=== PATIENT | female | born 1980 | race Hispanic/Latino ===

== ENCOUNTER 2016-06-17 15:56 | Emergency (ER) | payer SELFPAY ==
--- NOTE | 2016-06-17 16:24 | Emergency Department Report ---
Chief Complaint: Neck Pain/Injury Stated Complaint: NECK/CHEST/HIP PAIN Time Seen by Provider: 06/17/16 16:19 - HPI History of Present Illness: 35-year-old female comes in for complaint of neck pain that travels to her chest as well as left hip pain hip pain. Patient reports a past medical history of a goiter, thyroid disease. She is no longer on any thyroid medication. She reports the goiter making it difficult for her to swallow. She also complains of hip pain that she's had trouble for the last 11 years but now pain is getting worse. Denies any recent trauma to her left hip. Patient reports that she seems to be more depressed just wants to sleep all the time no energy. He is currently on no medication at this time. She is followed by [facility] but has not been able to get in as December. - Exam Vital Signs: Vital Signs 06/17/16 16:02 Temperature 98.3 F Pulse Rate 73 Respiratory 16 Rate Blood Pressure 132/87 O2 Sat by Pulse 99 Oximetry Physical Exam: She is alert and oriented 3 cardiovascular S1-S2 regular rate and rhythm respiratory clear dictation bilateral abdomen soft some mild tenderness in the left lower quadrant. There is noticeable goiter. MSE screening note: Focused history and physical exam performed. Due to findings the following was ordered: CBC BMP TSH free T4 UA serum test ordered patient be evaluated in main ER ED Disposition for MSE Condition: Stable
[2016-06-17 16:45] LABS: Hematocrit 39.3 % (30.3-42.9); Hemoglobin 13.4 gm/dl (10.1-14.3); Mean Corpuscular HGB Conc 34 % (30-34); Mean Corpuscular Hemoglobin 33 pg (28-32); Mean Corpuscular Volume 96 fl (79-97); Platelet Count 240 K/mm3 (140-440); Red Blood Count 4.11 M/mm3 (3.65-5.03); Red Cell Distribution Width 14.7 % (13.2-15.2); White Blood Count 9.3 K/mm3 (4.5-11.0)
[2016-06-17 17:04] LABS: Anion Gap 17 mmol/L; BUN/Creatinine Ratio 15.71; Blood Urea Nitrogen 11 mg/dL (7-17); Calcium 8.7 mg/dL (8.4-10.2); Carbon Dioxide 23 mmol/L (22-30); Chloride 102.1 mmol/L (98-107); Glucose 91 mg/dL (65-100); Potassium 3.6 mmol/L (3.6-5.0); Sodium 138 mmol/L (137-145)
[2016-06-17 17:17] LABS: Bilirubin,Urine NEG (Negative); Blood,Urine NEG (Negative); Ketones,Urine NEG (Negative); Leukocyte Esterase,Urine SM (Negative); Mucus,Urine FEW /HPF; Nitrite,Urine NEG (Negative); Protein,Urine <15 mg/dL mg/dL (Negative); Urobilinogen,Urine < 2.0 mg/dL (<2.0)
--- NOTE | 2016-06-17 20:02 | Cat Scan Report ---
FINAL REPORT EXAM: CT NECK WO CON HISTORY: goiter with sob TECHNIQUE: CT neck with IV contrast PRIORS: None. FINDINGS: No evidence for pharyngeal tonsillar enlargement no evidence of enlargement of the adenoids. No pathologically enlarged lymph nodes are identified in the neck The major salivary glands are within normal limits No abnormal mass or cyst is seen. The cervical spine is within normal limits. No evidence of significant anterior osteophyte. Proximal esophagus does not appear dilated. No focal inflammatory change seen. Major vascular structures are unremarkable. Thyroid gland is markedly enlarged right lobe measuring 7.5 centimeters in length and left lobe measuring 7 4 centimeters in length. At the level of the goiter there is minimal circumferential narrowing of the trachea measuring 1.18 x 1.43 centimeters (axial slice 70). At the level of the thoracic inlet it measures 1.39 x 1.52 centimeters IMPRESSION: Marked thyromegaly Minimal tracheal narrowing at the level of the mid thyroid
[2016-06-18 00:48] VITALS: BP 123/65
--- NOTE | 2016-06-18 01:03 | Emergency Department Report ---
ED Neck Pain/Injury HPI - General Chief Complaint: Neck Pain/Injury Stated Complaint: NECK/CHEST/HIP PAIN Time Seen by Provider: 06/17/16 16:19 Mode of arrival: Ambulatory Limitations: No Limitations - History of Present Illness Initial Comments: Patient is a 35-year-old female with history of goiter, hypothyroidism, anxiety presented today because of neck pain. Patient has been on levothyroxin long- term however states that she had stopped the medication back in February. She denies any other significant symptoms. States she occasionally has some shortness of breath however she is not short of breath here. No fevers, chills , nausea vomiting, changes in weight, diarrhea. Patient is also complaining about left hip pain that has been going on for the last 9 years that is intermittent and occasional, does not have any difficulty walking. She had also stopped her Zoloft and Klonopin in the last couple months. States that she missed an appointment to see her doctor recently. - Related Data Home Medications Medication Instructions Recorded Confirmed Last Taken RX: No Known Home Medications [No 06/18/16 06/18/16 Unknown Reported Home Medications] Allergies Allergy/AdvReac Type Severity Reaction Status Date / Time No Known Allergies Allergy Unverified 10/10/13 19:56 ED Review of Systems ROS: Stated complaint: NECK/CHEST/HIP PAIN Other details as noted in HPI Comment: All other systems reviewed and negative Constitutional: denies: chills, fever Respiratory: denies: cough, shortness of breath Cardiovascular: denies: chest pain Gastrointestinal: denies: abdominal pain, nausea, vomiting Skin: denies: rash Neurological: denies: headache, weakness, numbness Psychiatric: anxiety ED Past Medical Hx - Past Medical History Previous Medical History?: Yes Hx Diabetes: Yes (diet controlled) Additional medical history: Thyroid problems - Surgical History Hx Cholecystectomy: Yes Hx Appendectomy: Yes Additional Surgical History: Right foot bunionectomy - Social History Smoking Status: Current Every Day Smoker Substance Use Type: Alcohol - Medications Home Medications: Home Medications Medication Instructions Recorded Confirmed Last Taken Type RX: No Known Home Medications [No 06/18/16 06/18/16 Unknown History Reported Home Medications] ED Physical Exam - General Limitations: No Limitations General appearance: alert - Eye Eye exam: Present: normal appearance - ENT ENT exam: Present: normal exam, normal orophraynx, normal external ear exam - Neck Neck exam: Present: other (large goiter, nontender, no erythema, no fluctuance) - Respiratory Respiratory exam: Present: normal lung sounds bilaterally. Absent: respiratory distress - Cardiovascular Cardiovascular Exam: Present: regular rate, normal rhythm - GI/Abdominal GI/Abdominal exam: Present: soft. Absent: distended, tenderness - Extremities Exam Extremities exam: Present: normal inspection, other (no tenderness to the left hip, no edema to upper or lower extremities) - Neurological Exam Neurological exam: Present: alert, oriented X3 - Psychiatric Psychiatric exam: Present: anxious ED Course Vital Signs 06/17/16 06/17/16 06/18/16 16:02 23:49 00:47 Temperature 98.3 F 98.0 F 98.3 F Pulse Rate 73 60 64 Respiratory 16 18 18 Rate Blood Pressure 132/87 130/82 Blood Pressure 123/65 [Left] O2 Sat by Pulse 99 100 98 Oximetry ED Medical Decision Making - Lab Data Result diagrams: 06/17/16 16:32 06/17/16 16:32 - Medical Decision Making Labs and neck CT had been preordered. CT neck shows no airway compromise. Labs show hypothyroidism. Patient has normal vital signs and no clinical signs of myxedema. Sling to the patient the importance of following up with her primary care doctor. She has her thyroid medication at home. I recommended that she restart her medication and follow-up in the next few days with a primary care doctor. I gave her her lab results and CT results to discuss with her primary doctor. Patient understands and will follow-up. Critical care attestation.: If time is entered above; I have spent that time in minutes in the direct care of this critically ill patient, excluding procedure time. ED Disposition Clinical Impression: Goiter Hypothyroidism Qualifiers: Hypothyroidism type: unspecified Qualified Code(s): E03.9 - Hypothyroidism, unspecified Disposition: DISCHARGED TO HOME OR SELFCARE Is pt being admited?: No Does the pt Need Aspirin: No Condition: Stable Instructions: Hypothyroidism (ED), Thyroid Goiter (ED) Additional Instructions: Follow-up with your primary care doctor in the next 3-5 days. Bring your lab results and CT results to discuss with your doctor. Your lab results did show hypothyroidism. Return to the emergency room if you have any new symptoms especially shortness of breath, lightheadedness or swelling to the lower legs Referrals: PRIMARY CARE, [Primary Care Provider] - 3-5 Days Time of Disposition: 01:10
[2016-06-18] MEDS ORDERED: MOTRIN PO ONE (01:05)
== END 2016-06-18 01:32 | disposition home or self-care (01) ==
LOC: ED 15:56
DX: E03.9 Hypothyroidism, unspecified (principal); E04.9 Nontoxic goiter, unspecified; E11.9 Type 2 diabetes mellitus without complications; F17.200 Nicotine dependence, unspecified, uncomplicated; Z90.49 Acquired absence of other specified parts of digestive tract
CPT/HCPCS: 36415; 70490; 80048; 81001; 84439; 84443; 84702; 85027; 93005; 93010; 99284

== ENCOUNTER 2016-12-30 21:43 | Emergency (ER) | payer MEDICAID ==
--- NOTE | 2016-12-30 22:42 | Emergency Department Report ---
ED Extremity Problem HPI - General Chief complaint: Extremity Injury, Lower Stated complaint: FOOT PAIN Source: patient Mode of arrival: Ambulatory Limitations: No Limitations - History of Present Illness MD Complaint: extremity pain -: Gradual, days(s) Location: right, other (foot ) History of Same: No -: Yes arthralgia, No fever, No associated dyspnea, No associated chest pain Severity scale (0 -10): 4 Quality: aching Worsens with: weight bearing, walking, palpation Associated Symptoms: denies other symptoms. denies: chest pain, shortness of breath, fever, myalgias, rash - Related Data Previous Rx's Medication Instructions Recorded Last Taken Type Etodolac 200 mg PO Q8H PRN #20 capsule 12/30/16 Unknown Rx traMADol [Ultram 50 MG tab] 50 mg PO Q4HR PRN #20 tablet 12/30/16 Unknown Rx Allergies Allergy/AdvReac Type Severity Reaction Status Date / Time No Known Allergies Allergy Verified 12/30/16 21:48 ED Review of Systems ROS: Stated complaint: FOOT PAIN Other details as noted in HPI Constitutional: denies: chills, fever Eyes: denies: eye pain, eye discharge, vision change ENT: denies: ear pain, throat pain Respiratory: denies: see HPI, cough, orthopnea, shortness of breath, SOB with exertion, SOB at rest, stridor, wheezing Cardiovascular: denies: chest pain, palpitations, dyspnea on exertion, orthopnea , edema, syncope, paroxysmal nocturnal dyspnea Gastrointestinal: denies: nausea, vomiting Musculoskeletal: arthralgia. denies: joint swelling Skin: denies: rash, lesions ED Past Medical Hx - Past Medical History Previous Medical History?: No Hx Diabetes: (diet controlled) Additional medical history: Thyroid problems - Surgical History Past Surgical History?: Yes Hx Cholecystectomy: Yes Hx Appendectomy: Yes Additional Surgical History: Right foot bunionectomy - Social History Smoking Status: Current Every Day Smoker Substance Use Type: Alcohol - Medications Home Medications: Home Medications Medication Instructions Recorded Confirmed Last Taken Type Etodolac 200 mg PO Q8H PRN #20 capsule 12/30/16 Unknown Rx traMADol [Ultram 50 MG tab] 50 mg PO Q4HR PRN #20 tablet 12/30/16 Unknown Rx ED Physical Exam - General Limitations: No Limitations General appearance: alert, in no apparent distress - Head Head exam: Present: atraumatic, normocephalic - Eye Eye exam: Present: normal appearance - ENT ENT exam: Present: mucous membranes moist - Neck Neck exam: Present: normal inspection - Respiratory Respiratory exam: Present: normal lung sounds bilaterally. Absent: respiratory distress - Cardiovascular Cardiovascular Exam: Present: regular rate - Extremities Exam Extremities exam: Present: full ROM, tenderness (right plantar fascial pain on palpation), normal capillary refill. Absent: pedal edema, joint swelling, calf tenderness - Back Exam Back exam: Present: normal inspection, full ROM - Neurological Exam Neurological exam: Present: alert, oriented X3 - Psychiatric Psychiatric exam: Present: normal affect - Skin Skin exam: Present: warm, dry, intact, normal color. Absent: rash ED Course Vital Signs 12/30/16 21:49 Temperature 98.6 F Pulse Rate 79 Respiratory 16 Rate Blood Pressure 119/77 O2 Sat by Pulse 98 Oximetry - Reevaluation(s) Reevaluation #1: 12/31/16 00:09 Stress to x-ray findings, and discharge instructions with patient patient verbalized understanding of these. Critical care attestation.: If time is entered above; I have spent that time in minutes in the direct care of this critically ill patient, excluding procedure time. ED Disposition Clinical Impression: Plantar fasciitis of right foot Disposition: DC-01 TO HOME OR SELFCARE Is pt being admited?: No Condition: Stable Instructions: Plantar Fasciitis (ED) Prescriptions: Etodolac 200 mg PO Q8H PRN #20 capsule PRN Reason: Pain traMADol [Ultram 50 MG tab] 50 mg PO Q4HR PRN #20 tablet PRN Reason: Pain Referrals: PRIMARY CARE, [Primary Care Provider] - 3-5 Days MELECIO BEASLEY MD [Staff Physician] - 3-5 Days
--- NOTE | 2016-12-30 23:57 | XRay Report ---
FINAL REPORT EXAM: XR ANKLE 3+V RT HISTORY: INJURY TECHNIQUE: Right ankle three views 3 images PRIORS: None. FINDINGS: There are screws noted in the 1st metatarsal. Bone mineralization appears within normal limits. No acute fracture or subluxation is identified. No gross abnormality is seen in the soft tissues. IMPRESSION: 1. No acute osseous abnormality is identified. 2. Surgical sequelae are noted.
--- NOTE | 2016-12-30 23:57 | XRay Report ---
FINAL REPORT EXAM: XR FOOT 3+V RT HISTORY: INJURY TECHNIQUE: Right foot three views 3 images PRIORS: None. FINDINGS: Screws are noted in the 1st metatarsal. Bone mineralization appears within normal limits. No acute fracture or subluxation is identified. No gross abnormality is seen in the soft tissues. IMPRESSION: 1. No acute fracture is identified.If symptoms persist, consider repeat study in 10-14 days to assess for a currently radiographically occult fracture.
[2016-12-31 00:15] VITALS: BP 125/85
== END 2016-12-31 00:15 | disposition home or self-care (01) ==
LOC: ED 21:43
DX: M72.2 Plantar fascial fibromatosis (principal); F17.210 Nicotine dependence, cigarettes, uncomplicated
CPT/HCPCS: 99283

== ENCOUNTER 2017-01-19 11:18 | Outpatient (CLI) | payer MEDICAID ==
--- NOTE | 2017-01-19 12:15 | XRay Report ---
LEFT HIP RADIOGRAPHS INDICATION: Left hip pain. COMPARISON: None similar. FINDINGS: An AP pelvic radiograph with frog-leg projection of the left hip demonstrate intact articulation. Imaged bilateral SI and hip joints appear intact. Nonobstructive bowel gas pattern. Few small pelvic phleboliths. CONCLUSION: No acute radiographic abnormality. Thank you for the opportunity to participate in this patient's care.
== END 2017-01-19 11:19 | disposition home or self-care (01) ==
LOC: XRAY 11:18
PROVIDERS: ATTEND Orthopaedic Surgery
DX: M25.552 Pain in left hip (principal); I87.8 Other specified disorders of veins; F17.200 Nicotine dependence, unspecified, uncomplicated

== ENCOUNTER 2018-07-13 01:24 | Emergency (ER) | payer MEDICAID ==
[2018-07-13 01:56] LABS: Basophils % (Auto) 0.4 % (0.0-1.8); Eosinophils # (Auto) 0.2 K/mm3 (0.0-0.4); Eosinophils % (Auto) 2.1 % (0.0-4.3); Hematocrit 38.3 % (30.3-42.9); Hemoglobin 13.1 gm/dl (10.1-14.3); Lymphocytes # (Auto) 2.8 K/mm3 (1.2-5.4); Lymphocytes % (Auto) 35.3 % (13.4-35.0); Mean Corpuscular HGB Conc 34 % (30-34); Mean Corpuscular Volume 100 fl (79-97); Monocytes # (Auto) 0.5 K/mm3 (0.0-0.8); Platelet Count 181 K/mm3 (140-440); Red Blood Count 3.84 M/mm3 (3.65-5.03); Red Cell Distribution Width 13.9 % (13.2-15.2)
[2018-07-13 03:46] LABS: Bacteria,Urine 1+ /HPF (Negative); Bilirubin,Urine NEG (Negative); Blood,Urine LG (Negative); Color,Urine Yellow (Yellow); Protein,Urine <15 mg/dL mg/dL (Negative); Urobilinogen,Urine < 2.0 mg/dL (<2.0)
[2018-07-13 03:48] LABS: RBC,Urine > 182.0 /HPF (0.0-6.0)
--- NOTE | 2018-07-13 05:12 | Ultrasound Report ---
FINAL REPORT PROCEDURE: US OB < = 14 WEEKS FETUS TECHNIQUE: Real-time transabdominal sonography of the uterus, placenta, amniotic fluid, adnexa, and fetus was performed with image documentation. Measurements were obtained to determine age/size. M-mode Doppler was used to document heartbeat. CPT 21470 HISTORY: and bleeding COMPARISON: No prior studies are available for comparison. FINDINGS: No intrauterine gestational sac is identified. Uterus measures 9.6 x 4.6 x 5.6 centimeters. Endometrium is thickened at 11 millimeters. There is no endometrial fluid. Right ovary measures 2.4 x 2 x 2.2 centimeters. Left ovary measures 2.5 x 1.2 x 2.1 centimeters. There is no ovarian mass or cyst or pelvic fluid collection. IMPRESSION: There is no evidence of intrauterine or ectopic . Correlation with beta HCG measurements may be helpful.
--- NOTE | 2018-07-13 05:12 | Ultrasound Report ---
FINAL REPORT PROCEDURE: US OB transvaginal TECHNIQUE: Real-time t transvaginal sonography of the uterus, placenta, amniotic fluid, adnexa, and fetus was performed with image documentation. Measurements were obtained to determine age/size. M-mode Doppler was used to document heartbeat. HISTORY: and bleeding COMPARISON: No prior studies are available for comparison. FINDINGS: No intrauterine gestational sac is identified. Uterus measures 9.6 x 4.6 x 5.6 centimeters. Endometrium is thickened at 11 millimeters. There is no endometrial fluid. Right ovary measures 2.4 x 2 x 2.2 centimeters. Left ovary measures 2.5 x 1.2 x 2.1 centimeters. There is no ovarian mass or cyst or pelvic fluid collection. IMPRESSION: There is no evidence of intrauterine or ectopic . Correlation with beta HCG measurements may be helpful.
[2018-07-13 05:34] VITALS: BP 102/65
--- NOTE | 2018-07-13 07:42 | Emergency Department Report ---
ED Female HPI - General Chief complaint: Vaginal Bleeding Stated complaint: VAGINAL BLEEDING 6 WKS PREG Time Seen by Provider: 07/13/18 06:33 Source: patient Mode of arrival: Ambulatory Limitations: No Limitations - History of Present Illness Initial comments: Is a 37-year-old lady that states she is 6 weeks . She has had no prior ultrasound this . She has 3 live children and one prior miscarriage. She experienced vaginal bleeding. She has no acute pain or active bleeding at this time area she has already had an ultrasound which showed an empty uterus. Her hCG is in the 30s. A blood type was not done so this was added. She has no current major assembler. MD Complaint: vaginal bleeding -: Gradual Severity: mild Consistency: constant Improves with: none Worsens with: none Are you Now?: No Associated Symptoms: vaginal bleeding - Related Data Previous Rx's Medication Instructions Recorded Last Taken Type Etodolac 200 mg PO Q8H PRN #20 capsule 12/30/16 Unknown Rx traMADol [Ultram 50 MG tab] 50 mg PO Q4HR PRN #20 tablet 12/30/16 Unknown Rx traMADol [Ultram 50 MG tab] 50 mg PO ONCE PRN #7 tablet 07/13/18 Unknown Rx Allergies Allergy/AdvReac Type Severity Reaction Status Date / Time No Known Allergies Allergy Verified 12/30/16 21:48 ED Review of Systems ROS: Stated complaint: VAGINAL BLEEDING 6 WKS PREG Other details as noted in HPI Constitutional: denies: chills, fever Eyes: denies: eye pain, eye discharge, vision change ENT: denies: ear pain, throat pain Respiratory: denies: cough, shortness of breath, wheezing Cardiovascular: denies: chest pain, palpitations Endocrine: no symptoms reported Gastrointestinal: denies: abdominal pain, nausea, diarrhea Genitourinary: abnormal menses. denies: urgency, dysuria, discharge Musculoskeletal: denies: back pain, joint swelling, arthralgia Skin: denies: rash, lesions Neurological: denies: headache, weakness, paresthesias Psychiatric: denies: anxiety, depression Hematological/Lymphatic: denies: easy bleeding, easy bruising ED Past Medical Hx - Past Medical History Previous Medical History?: Yes Hx Diabetes: (diet controlled) Additional medical history: Thyroid problems - Surgical History Past Surgical History?: Yes Hx Cholecystectomy: Yes Hx Appendectomy: Yes Additional Surgical History: Right foot bunionectomy - Social History Smoking Status: Former Smoker Substance Use Type: None - Medications Home Medications: Home Medications Medication Instructions Recorded Confirmed Last Taken Type Etodolac 200 mg PO Q8H PRN #20 capsule 12/30/16 Unknown Rx traMADol [Ultram 50 MG tab] 50 mg PO Q4HR PRN #20 tablet 12/30/16 Unknown Rx traMADol [Ultram 50 MG tab] 50 mg PO ONCE PRN #7 tablet 07/13/18 Unknown Rx ED Physical Exam - General Limitations: No Limitations General appearance: alert, in no apparent distress, obese - Head Head exam: Present: atraumatic, normocephalic - Eye Eye exam: Present: normal appearance. Absent: scleral icterus - ENT ENT exam: Present: mucous membranes moist - Neck Neck exam: Present: normal inspection - Respiratory Respiratory exam: Present: normal lung sounds bilaterally. Absent: respiratory distress - Cardiovascular Cardiovascular Exam: Present: regular rate, normal rhythm. Absent: systolic murmur, diastolic murmur, rubs, gallop - GI/Abdominal GI/Abdominal exam: Present: soft, normal bowel sounds. Absent: distended, tenderness, guarding, rebound, rigid - Extremities Exam Extremities exam: Present: normal inspection - Back Exam Back exam: Present: normal inspection - Neurological Exam Neurological exam: Present: alert, oriented X3, CN II-XII intact. Absent: motor sensory deficit - Psychiatric Psychiatric exam: Present: normal affect, normal mood - Skin Skin exam: Present: warm, dry, intact, normal color. Absent: rash ED Course Vital Signs 07/13/18 07/13/18 01:29 05:32 Temperature 98.5 F 98.1 F Pulse Rate 65 65 Respiratory 18 15 Rate Blood Pressure 112/81 Blood Pressure 102/65 [Right] O2 Sat by Pulse 99 98 Oximetry ED Medical Decision Making - Lab Data Result diagrams: 07/13/18 01:40 Laboratory Results - last 24 hr 07/13/18 07/13/18 07/13/18 01:40 01:40 Unknown WBC 7.9 RBC 3.84 Hgb 13.1 Hct 38.3 MCV 100 H MCH 34 H MCHC 34 RDW 13.9 Plt Count 181 Lymph % (Auto) 35.3 H [place] % (Auto) 6.0 Eos % (Auto) 2.1 Baso % (Auto) 0.4 Lymph # 2.8 [place] # 0.5 Eos # 0.2 Baso # 0.0 Seg Neutrophils % 56.2 Seg Neutrophils # 4.4 HCG, Quant 32.50 H Urine Color Yellow Urine Turbidity Clear Urine pH 5.0 Ur Specific [place] 1.019 Urine Protein <15 mg/dl Urine Glucose (UA) Neg Urine Ketones Neg Urine Blood Lg Urine Nitrite Neg Urine Bilirubin Neg Urine Urobilinogen < 2.0 Ur Leukocyte Esterase Neg Urine WBC (Auto) 5.0 Urine RBC (Auto) > 182.0 U Epithel Cells (Auto) 4.0 Urine Bacteria (Auto) 1+ - Radiology Data Radiology results: report reviewed FINDINGS: No intrauterine gestational sac is identified. Uterus measures 9.6 x 4.6 x 5.6 centimeters. Endometrium is thickened at 11 millimeters. There is no endometrial fluid. Right ovary measures 2.4 x 2 x 2.2 centimeters. Left ovary measures 2.5 x 1.2 x 2.1 centimeters. There is no ovarian mass or cyst or pelvic fluid collection. IMPRESSION: There is no evidence of intrauterine or ectopic . Correlation with beta HCG measurements may be helpful. - Medical Decision Making Most likely the patient's empty uterus plus very low hCG is indicative of complete miscarriage. Early and even ectopic is not completely excluded. The patient is advised to get a repeat hCG testing with her referral major assembler. Critical care attestation.: If time is entered above; I have spent that time in minutes in the direct care of this critically ill patient, excluding procedure time. ED Disposition Clinical Impression: Spontaneous miscarriage Disposition: DC-01 TO HOME OR SELFCARE Is pt being admited?: No Does the pt Need Aspirin: No Condition: Stable Instructions: Spontaneous Miscarriage (ED) Additional Instructions: It is recommended that a repeat blood test of (hCG) is reviewed by the major assembler that I am referring you to. See the major assembler for further care and evaluation. Return to the emergency department for any acute change or problem. Prescriptions: traMADol [Ultram 50 MG tab] 50 mg PO ONCE PRN #7 tablet PRN Reason: pain Referrals: MASSIEL COLON MD [Primary Care Provider] - 3-5 Days Time of Disposition: 07:46
[2018-07-13] MEDS ORDERED: ZOFRAN ODT PO ONE (08:17)
[2018-07-13] MEDS ORDERED: ULTRAM PO ONE (08:17)
== END 2018-07-13 08:39 | disposition home or self-care (01) ==
LOC: ED 01:24
DX: O03.9 Complete or unspecified spontaneous abortion without complication (principal); Z90.49 Acquired absence of other specified parts of digestive tract; Z87.891 Personal history of nicotine dependence; Z3A.01 Less than 8 weeks gestation of pregnancy
CPT/HCPCS: 36415; 76801; 76817; 81001; 84702; 85025; 86900; 86901; 99284; Q0162

== ENCOUNTER 2020-10-19 22:30 | Emergency (ER) | payer MEDICAID | END 2020-10-20 01:27 | disposition left against medical advice (07) | LOC: ED 22:30 ==